=== PATIENT | male | born 2000 | race African-American/Black ===

== ENCOUNTER 2023-11-22 10:56 | Emergency (ER) | payer SELFPAY ==
--- NOTE | ~2023-11-22 | XR_ITS ---
EXAMINATION: XR chest 1V portable DATE: 11/22/2023 11:40 INDICATION: Cough and illness TECHNIQUE: frontal view of the chest was obtained. COMPARISON: None FINDINGS: The lungs are clear with no focal airspace opacities, pulmonary edema, pleural effusion or pneumothor ax. The cardiomediastinal silhouette is normal. Visualized bones and soft tissues are unremarkable. IMPRESSION: 1. No acute cardiopulmonary disease. Reviewed, dictated and finalized at location A.
[2023-11-22 11:00] VITALS: BP 120/71; PULSE 93; RESP 16; TEMP 36.8; O2SAT 100
--- NOTE | 2023-11-22 11:33 | ED.GENADULT ---
HPI - General Adult General Chief complaint: Upper Respiratory Infection Stated complaint: Not feeling well the past few days Time Seen by Provider: 11/22/23 10:59 History of Present Illness HPI narrative: 23-year-old male presenting to the emergency department for evaluation for cough and congestion that is been going on for the last 2 days. 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 Patient has also noted some low-grade fever and some bilateral axillary lymphadenopathy. Patient denies any significant past medical history. Review of Systems Review of Systems: All systems reviewed & are unremarkable except as noted in HPI and below Exam Narrative: APPEARANCE: Well appearing, no pain, no distress, well-nourished. HEAD: normocephalic, atraumatic. EYES: PERRLA/EOMI, conjunctivae clear. NOSE: Normal no drainage EARS:TMS clear with good light reflex. THROAT: Pharynx clear, no exudate. NECK: Supple. No adenopathy, no masses. RESPIRATORY: Airway patent, respirations nonlabored. Clear to auscultation bilaterally, no rales, rhonchi, wheezing. CARDIOVASCULAR: Regular rate and rhythm without murmurs rubs or gallops. ABDOMINAL: Soft, nontender, nondistended, normal bowel sounds MUSCULOSKELETAL: Moves all extremities. Strength/ROM intact, No edema, No calf tenderness. Bilat axillary lymphadenopathy NEURO: Alert. Cranial nerves II through XII intact. Grossly intact SKIN: Warm, dry. Normal Color Course Vital Signs Vital signs: Vital Signs Temperature 98.2 F 11/22/23 11:00 Pulse Rate 93 11/22/23 11:00 Respiratory Rate 16 11/22/23 11:00 Blood Pressure 120/71 11/22/23 11:00 Pulse Oximetry 100 11/22/23 11:00 Oxygen Delivery Room Air 11/22/23 11:00 Temperature 98.5 F 11/22/23 12:20 Pulse Rate 88 11/22/23 12:20 Respiratory Rate 16 11/22/23 12:20 Blood Pressure 128/88 11/22/23 12:20 Pulse Oximetry 100 11/22/23 12:20 Oxygen Delivery Room Air 11/22/23 11:05 Medical Decision Making [facility] Narrative Medical decision making narrative: 23-year-old male present to the emergency department for evaluation for cough congestion and axillary lymphadenopathy. Suspect viral etiology. COVID swab was negative but this still could be COVID. Patient was advised to take Tylenol and ibuprofen for fever and for body ache and patient was encouraged of close follow-up with primary care physician Differential Diagnosis Differential Diagnosis: COVID, RSV, influenza, viral etiology, pneumonia Vital Signs Vital Signs: Vital Signs Temperature 98.2 F 11/22/23 11:00 Pulse Rate 93 11/22/23 11:00 Respiratory Rate 16 11/22/23 11:00 Blood Pressure 120/71 11/22/23 11:00 Pulse Oximetry 100 11/22/23 11:00 Oxygen Delivery Room Air 11/22/23 11:00 Temperature 98.5 F 11/22/23 12:20 Pulse Rate 88 11/22/23 12:20 Respiratory Rate 16 11/22/23 12:20 Blood Pressure 128/88 11/22/23 12:20 Pulse Oximetry 100 11/22/23 12:20 Oxygen Delivery Room Air 11/22/23 11:05 Lab Data Labs: Lab Results 11/22/23 Range/Units 11:04 Influenza A (RT-PCR) Negative (Negative) Influenza B (RT-PCR) Negative (Negative) RSV (RT-PCR) Negative (Negative) SARS-CoV-2 RNA (RT-PCR) Negative (Negative) Imaging Data Radiologist's impression: Impressions Chest X-Ray 11/22/23 11:55 IMPRESSION: 1. No acute cardiopulmonary disease. Discharge Plan Discharge Clinical Impression: Acute viral syndrome, Lymphadenopathy Patient Disposition: Home, Self-Care Condition: Stable Instructions: Antibiotic Form, Viral Syndrome (ED) Additional Instructions: Tylenol and ibuprofen for fever and for body aches. Have close follow-up with your primary care physician. If you have any worsening symptoms then please call or return to the emergency department. Follow-up/Referrals: Provider,Protocol [Physician] -
[2023-11-22 11:45] LABS: Influenza A QL RT-PCR Negative (Negative); Influenza B QL RT-PCR Negative (Negative); RSV RNA, RT-PCR Negative (Negative); SARS-CoV-2 RNA PCR Negative (Negative)
[2023-11-22 12:20] VITALS: BP 128/88; PULSE 88; RESP 16; TEMP 36.9; O2SAT 100
== END 2023-11-22 12:23 | disposition home or self-care (01) ==
PROVIDERS: Emergency Provider Emergency Medicine
DX: B34.9 Viral infection, unspecified (principal); R59.1 Generalized enlarged lymph nodes; Z20.822 Contact with and (suspected) exposure to COVID-19
CPT/HCPCS: 71045; 87637; 99283